=== PATIENT | male | born 1960 | race Hispanic/Latino ===

== ENCOUNTER 2017-11-29 10:24 | Inpatient (IN) | payer OTHER ==
[~2017-11-29] VITALS: Ht 177.8 cm; Wt 100.0 kg
[~2017-11-29 10:24] MED LIST: ALPR-411 PO; AMLO25PO MC; GABA-529 PO; GLIM2TAB3 PO; HYDR12.530 PO; IBUP-2071 PO; INSLAN SQ; LABETALOL PO; LOSA100T29 PO; MAGN250T10 PO; POLY30DR OP; [UNRECOGNIZED DRUG - CODE] MC
[2017-11-29 11:21] LABS: BASOPHILS % (AUTO) 1.1 % (0.0-5.0); EOSINOPHILS % (AUTO) 3.2 % (0.0-8.0); HEMATOCRIT 35.3 % (42-54); LYMPHOCYTES % (AUTO) 30.9 % (21.0-51.0); MEAN CORPUSCULAR HEMOGLOBIN 29.3 pg (27.0-33.0); MEAN CORPUSCULAR HGB CONC 34.1 g/dL (32.0-36.0); MEAN CORPUSCULAR VOLUME 86.1 fL (79-99); MONOCYTES % (AUTO) 9.8 % (3.0-13.0); PLATELET COUNT (AUTO) 80 K/uL (130-400); RED CELL DISTRIBUTION WIDTH 15.1 % (11.0-15.5); WHITE BLOOD COUNT (AUTO) 4.9 K/uL (4.8-10.8)
[2017-11-29 11:28] LABS: APPEARANCE,URINE Clear (CLEAR); BILIRUBIN,URINE Negative (NEGATIVE); COLOR,URINE Yellow (YELLOW); GLUCOSE, URINE (UA) >=1000 mg/dL (NEGATIVE); KETONES,URINE Negative (NEGATIVE); LEUKOCYTE ESTERASE ,URINE Negative (NEGATIVE); NITRATE,URINE Negative (NEGATIVE); OCCULT BLOOD,URINE Negative (NEGATIVE); PH,URINE 6.5 (5.0-8.0); PROTEIN,URINE Negative (NEGATIVE)
[2017-11-29 11:35] LABS: BILIRUBIN,DIRECT 0.2 mg/dL (0.0-0.3); BILIRUBIN,TOTAL 0.4 mg/dL (0.2-1.0); CREATININE 0.9 mg/dL (0.5-1.5); TOTAL PROTEIN, SERUM 8.3 g/dL (6.0-8.3)
[2017-11-29 11:49] LABS: BACTERIA,URINE Rare /HPF (None Seen); RBC,URINE 0-1 /HPF (0-1); SQUAMOUS EPITHELIAL CELL,UR Rare /LPF (0-2); WBC,URINE 0-1 /HPF (0-1)
[2017-11-29 12:24] LABS: INR 1.18 (0.85-1.15); PARTIAL THROMBOPLASTIN TIME 28.2 SEC (26.3-35.5); PROTHROMBIN TIME 12.3 SEC (9.6-11.6)
[2017-11-29] MEDS ORDERED: INSULIN HUMULIN R 100 UNIT/ML 3ML ONE (14:03)
[2017-11-29] MEDS: ALPRAZOLAM 1 MG TAB PO SCH (21:00)
[2017-11-29] MEDS: ARTIFICAL TEARS SOL 15 ML OP SCH (21:00)
[2017-11-29] MEDS: GABAPENTIN 100 MG CAPSULE PO SCH (21:00)
[2017-11-29] MEDS: LABETALOL HCL 200 MG TABLET PO SCH (21:00)
[2017-11-29] MEDS: INSULIN GLARGINE 100 UNITS/ML 10 ML VIAL SQ SCH (21:00)
[2017-11-29 21:02] VITALS: BP 146/78
[2017-11-29 23:59] VITALS: BP 160/96
[2017-11-30] MEDS ORDERED: ATOR10TA69 PO (02:33)
[2017-11-30] MEDS ORDERED: TRAM50TA4 PO (02:33)
[2017-11-30] MEDS ORDERED: AMLO10TA2 PO (02:33)
[2017-11-30] MEDS ORDERED: CYCL5TAB PO (02:33)
[2017-11-30] MEDS ORDERED: FURO40TA5 PO (02:33)
[2017-11-30] MEDS ORDERED: GABA-531 PO (02:33)
[2017-11-30] MEDS ORDERED: SPIR100T3 PO (02:33)
[2017-11-30] MEDS ORDERED: ESCI10TA54 PO (02:33)
[2017-11-30] MEDS ORDERED: LEVO88TA7 PO (02:33)
[2017-11-30] MEDS ORDERED: PANT40TA25 PO (02:33)
[2017-11-30] MEDS ORDERED: MELO-108 PO (02:33)
[2017-11-30] MEDS ORDERED: GLIM2TAB3 PO (02:33)
[2017-11-30 04:00] VITALS: BP 143/80
[2017-11-30] MEDS ORDERED: GLUCAGON 1MG KIT 1 MG ML IM PRN (04:00)
[2017-11-30] MEDS ORDERED: DEXTROSE 50%-WATER 50 ML DISP.SYRIN IV PRN (04:00)
[2017-11-30 06:32] LABS: HEMATOCRIT 35.4 % (42-54); MEAN CORPUSCULAR HGB CONC 34.7 g/dL (32.0-36.0); MEAN CORPUSCULAR VOLUME 86.3 fL (79-99); NUCLEATED RED BLOOD CELLS 0.2 % (0.0-0.19); PLATELET COUNT (AUTO) 82 K/uL (130-400); WHITE BLOOD COUNT (AUTO) 5.6 K/uL (4.8-10.8)
[2017-11-30 06:36] LABS: INR 1.18 (0.85-1.15); PROTHROMBIN TIME 12.4 SEC (9.6-11.6)
[2017-11-30 06:50] LABS: CREATININE 0.8 mg/dL (0.5-1.5); POTASSIUM 4.2 mmol/L (3.5-5.1)
[2017-11-30 07:00] VITALS: BP 138/93
[2017-11-30] MEDS: INSULIN HUMULIN R 100 UNIT/ML 3ML SQ SCH ×4 (08:02→21:38)
[2017-11-30 08:36] LABS: EOSINOPHILS % (MANUAL) 1 % (1-6); LYMPHOCYTES % (MANUAL) 46 % (22-44); MONOCYTES % (MANUAL) 1 % (2-9); SEGMENTED NEUTROPHILS % 52 % (40-70)
[2017-11-30 08:37] LABS: MAN.DIFF COMMENT-IMPRESSION MANUAL DIFFERENTIAL
[2017-11-30 08:38] LABS: PLATELET MORPHOLOGY COMMENT DECREASED
[2017-11-30] MEDS: LOSARTAN 100 MG TABLET PO SCH ×2 (09:00→12:05)
[2017-11-30] MEDS: INSULIN GLARGINE 100 UNITS/ML 10 ML VIAL SQ SCH ×2 (09:00→21:37)
[2017-11-30] MEDS: AMLODIPINE BESYLATE 5 MG TAB PO SCH ×3 (09:00→12:04)
[2017-11-30] MEDS: ALPRAZOLAM 1 MG TAB PO SCH ×4 (09:00→20:24)
[2017-11-30] MEDS: LABETALOL HCL 200 MG TABLET PO SCH ×3 (09:00→20:24)
[2017-11-30] MEDS: GABAPENTIN 100 MG CAPSULE PO SCH ×3 (09:00→14:00)
[2017-11-30] MEDS: POTASSIUM GLUCONATE 595 MG PO SCH (09:00)
[2017-11-30] MEDS: GLIMEPIRIDE 2 MG TABLET PO SCH ×3 (09:00→18:20)
[2017-11-30] MEDS: ARTIFICAL TEARS SOL 15 ML OP SCH ×2 (09:00→21:00)
[2017-11-30] MEDS: HYDROCHLOROTHIAZIDE 25 MG TABLET PO SCH ×2 (09:00→12:05)
[2017-11-30] MEDS ORDERED: MORPHINE SULFATE 2 MG/ML 1ML SYG IM PRN (09:15)
[2017-11-30] MEDS: SPIRONOLACTONE 25 MG TAB PO SCH ×2 (09:35→20:24)
[2017-11-30] MEDS ORDERED: IOPAMIDOL-370 75 ML VIAL IV ONE (10:40)
[2017-11-30 11:00] VITALS: BP 154/81
[2017-11-30] MEDS: GABAPENTIN 300 MG CAPSULE PO SCH ×2 (14:00→20:24)
[2017-11-30] MEDS: CYCLOBENZAPRINE HCL 10 MG TABLET PO SCH ×2 (15:37→20:24)
[2017-11-30 16:00] VITALS: BP 134/65
[2017-11-30] MEDS: ATORVASTATIN CALCIUM 10 MG TABLET PO SCH (20:24)
[2017-11-30] MEDS ORDERED: MORPHINE SULFATE 2 MG/ML 1ML SYG IVP PRN (21:15)
[2017-11-30 22:26] VITALS: BP 127/75
[2017-12-01 00:50] VITALS: BP 123/69
[2017-12-01 04:47] VITALS: BP 122/67
[2017-12-01 05:33] LABS: HEMATOCRIT 36.3 % (42-54); MEAN CORPUSCULAR HEMOGLOBIN 29.3 pg (27.0-33.0); MEAN CORPUSCULAR HGB CONC 34.2 g/dL (32.0-36.0); MEAN CORPUSCULAR VOLUME 85.9 fL (79-99); PLATELET COUNT (AUTO) 93 K/uL (130-400); RED BLOOD CELL COUNT(AUTO) 4.23 MIL/uL (4.50-6.20); RED CELL DISTRIBUTION WIDTH 14.7 % (11.0-15.5); WHITE BLOOD COUNT (AUTO) 6.7 K/uL (4.8-10.8)
[2017-12-01 05:37] LABS: POTASSIUM 3.7 mmol/L (3.5-5.1)
[2017-12-01] MEDS: INSULIN HUMULIN R 100 UNIT/ML 3ML SQ SCH ×4 (05:54→21:26)
[2017-12-01] MEDS: LEVOTHYROXINE 88 MCG TABLET PO SCH (06:55)
[2017-12-01] MEDS: PANTOPRAZOLE SODIUM 40 MG TABLET.DR PO SCH (06:55)
[2017-12-01 07:00] VITALS: BP 136/74
[2017-12-01 07:46] LABS: EOSINOPHILS % (MANUAL) 4 % (1-6); LYMPHOCYTES % (MANUAL) 22 % (22-44); MAN.DIFF COMMENT-IMPRESSION MANUAL DIFFERENTIAL; MONOCYTES % (MANUAL) 13 % (2-9); SEGMENTED NEUTROPHILS % 61 % (40-70)
[2017-12-01 07:47] LABS: PLATELET MORPHOLOGY COMMENT DECREASED
[2017-12-01] MEDS: ARTIFICAL TEARS SOL 15 ML OP SCH ×2 (09:00→21:00)
[2017-12-01] MEDS: POTASSIUM GLUCONATE 595 MG PO SCH (09:00)
[2017-12-01] MEDS: GABAPENTIN 300 MG CAPSULE PO SCH ×3 (10:08→21:15)
[2017-12-01] MEDS: LABETALOL HCL 200 MG TABLET PO SCH ×2 (10:08→21:16)
[2017-12-01] MEDS: SPIRONOLACTONE 25 MG TAB PO SCH ×2 (10:08→21:15)
[2017-12-01] MEDS: ALPRAZOLAM 1 MG TAB PO SCH ×3 (10:09→21:00)
[2017-12-01] MEDS: CITALOPRAM 20 MG TABLET PO SCH (10:09)
[2017-12-01] MEDS: HYDROCHLOROTHIAZIDE 25 MG TABLET PO SCH (10:09)
[2017-12-01] MEDS: CYCLOBENZAPRINE HCL 10 MG TABLET PO SCH ×3 (10:10→21:15)
[2017-12-01] MEDS: FUROSEMIDE 40 MG TABLET PO SCH (10:10)
[2017-12-01] MEDS: LOSARTAN 100 MG TABLET PO SCH (10:10)
[2017-12-01] MEDS: AMLODIPINE BESYLATE 5 MG TAB PO SCH (10:11)
[2017-12-01] MEDS: GLIMEPIRIDE 2 MG TABLET PO SCH ×2 (10:14→18:43)
[2017-12-01] MEDS: TRAMADOL HCL 50 MG TABLET PO PRN (10:15)
[2017-12-01] MEDS: INSULIN GLARGINE 100 UNITS/ML 10 ML VIAL SQ SCH ×2 (10:21→21:25)
[2017-12-01 12:00] VITALS: BP 125/72
[2017-12-01 16:00] VITALS: BP 123/67
[2017-12-01 21:01] VITALS: BP 133/68
[2017-12-01] MEDS: ATORVASTATIN CALCIUM 10 MG TABLET PO SCH (21:14)
[2017-12-02 04:30] VITALS: BP 124/68
[2017-12-02 06:08] LABS: HEMATOCRIT 35.3 % (42-54); MEAN CORPUSCULAR HEMOGLOBIN 29.6 pg (27.0-33.0); MEAN CORPUSCULAR HGB CONC 34.2 g/dL (32.0-36.0); MEAN CORPUSCULAR VOLUME 86.3 fL (79-99); PLATELET COUNT (AUTO) 77 K/uL (130-400); RED BLOOD CELL COUNT(AUTO) 4.08 MIL/uL (4.50-6.20); RED CELL DISTRIBUTION WIDTH 15.2 % (11.0-15.5); WHITE BLOOD COUNT (AUTO) 5.5 K/uL (4.8-10.8)
[2017-12-02 06:19] LABS: POTASSIUM 3.4 mmol/L (3.5-5.1)
[2017-12-02] MEDS: PANTOPRAZOLE SODIUM 40 MG TABLET.DR PO SCH (06:48)
[2017-12-02] MEDS: LEVOTHYROXINE 88 MCG TABLET PO SCH (06:48)
[2017-12-02] MEDS: INSULIN HUMULIN R 100 UNIT/ML 3ML SQ SCH ×4 (06:57→21:58)
[2017-12-02 07:00] VITALS: BP 138/78
[2017-12-02 07:12] LABS: EOSINOPHILS % (MANUAL) 2 % (1-6); LYMPHOCYTES % (MANUAL) 38 % (22-44); MAN.DIFF COMMENT-IMPRESSION MANUAL DIFFERENTIAL; MONOCYTES % (MANUAL) 11 % (2-9); PLATELET MORPHOLOGY COMMENT DECREASED; REACTIVE LYMPHOCYTES 3 % (0-0); SEGMENTED NEUTROPHILS % 46 % (40-70)
[2017-12-02] MEDS: ARTIFICAL TEARS SOL 15 ML OP SCH ×2 (09:00→21:00)
[2017-12-02] MEDS: POTASSIUM GLUCONATE 595 MG PO SCH (09:00)
[2017-12-02] MEDS: GLIMEPIRIDE 2 MG TABLET PO SCH ×2 (09:37→17:05)
[2017-12-02] MEDS: LABETALOL HCL 200 MG TABLET PO SCH ×2 (09:37→21:53)
[2017-12-02] MEDS: AMLODIPINE BESYLATE 5 MG TAB PO SCH (09:38)
[2017-12-02] MEDS: SPIRONOLACTONE 25 MG TAB PO SCH ×2 (09:38→21:53)
[2017-12-02] MEDS: GABAPENTIN 300 MG CAPSULE PO SCH ×3 (09:39→21:52)
[2017-12-02] MEDS: HYDROCHLOROTHIAZIDE 25 MG TABLET PO SCH (09:39)
[2017-12-02] MEDS: CYCLOBENZAPRINE HCL 10 MG TABLET PO SCH ×3 (09:39→21:54)
[2017-12-02] MEDS: CITALOPRAM 20 MG TABLET PO SCH (09:40)
[2017-12-02] MEDS: ALPRAZOLAM 1 MG TAB PO SCH ×3 (09:40→21:53)
[2017-12-02] MEDS: LOSARTAN 100 MG TABLET PO SCH (09:40)
[2017-12-02] MEDS: FUROSEMIDE 40 MG TABLET PO SCH (09:40)
[2017-12-02] MEDS: INSULIN GLARGINE 100 UNITS/ML 10 ML VIAL SQ SCH ×2 (09:49→21:59)
[2017-12-02 11:00] VITALS: BP 126/67
[2017-12-02 16:00] VITALS: BP 103/65
[2017-12-02 20:13] VITALS: BP 115/66
[2017-12-02] MEDS: ATORVASTATIN CALCIUM 10 MG TABLET PO SCH (21:53)
[2017-12-02] MEDS: TRAMADOL HCL 50 MG TABLET PO PRN (22:05)
[2017-12-03 00:33] VITALS: BP 135/68
[2017-12-03 06:24] VITALS: BP 130/67
[2017-12-03] MEDS: LEVOTHYROXINE 88 MCG TABLET PO SCH (06:32)
[2017-12-03] MEDS: INSULIN HUMULIN R 100 UNIT/ML 3ML SQ SCH ×4 (06:32→22:13)
[2017-12-03] MEDS: PANTOPRAZOLE SODIUM 40 MG TABLET.DR PO SCH (06:32)
[2017-12-03 06:59] LABS: HEMATOCRIT 36.9 % (42-54); MEAN CORPUSCULAR HEMOGLOBIN 29.2 pg (27.0-33.0); MEAN CORPUSCULAR HGB CONC 33.8 g/dL (32.0-36.0); MEAN CORPUSCULAR VOLUME 86.3 fL (79-99); PLATELET COUNT (AUTO) 87 K/uL (130-400); RED BLOOD CELL COUNT(AUTO) 4.27 MIL/uL (4.50-6.20); RED CELL DISTRIBUTION WIDTH 15.2 % (11.0-15.5); WHITE BLOOD COUNT (AUTO) 6.2 K/uL (4.8-10.8)
[2017-12-03 07:14] LABS: POTASSIUM 3.7 mmol/L (3.5-5.1)
[2017-12-03 08:00] VITALS: BP 125/75
[2017-12-03] MEDS: GLIMEPIRIDE 2 MG TABLET PO SCH ×2 (08:00→18:05)
[2017-12-03] MEDS ORDERED: GADOBENATE DIMEGLUMINE 20 ML IV ONE (08:39)
[2017-12-03 08:54] LABS: BASOPHILS % (MANUAL) 2 % (0-2); EOSINOPHILS % (MANUAL) 2 % (1-6); LYMPHOCYTES % (MANUAL) 34 % (22-44); MONOCYTES % (MANUAL) 4 % (2-9); REACTIVE LYMPHOCYTES 1 % (0-0); SEGMENTED NEUTROPHILS % 57 % (40-70)
[2017-12-03 08:55] LABS: MAN.DIFF COMMENT-IMPRESSION MANUAL DIFFERENTIAL; PLATELET MORPHOLOGY COMMENT DECREASED
[2017-12-03] MEDS: POTASSIUM GLUCONATE 595 MG PO SCH (09:00)
[2017-12-03] MEDS: INSULIN GLARGINE 100 UNITS/ML 10 ML VIAL SQ SCH ×2 (09:00→22:14)
[2017-12-03] MEDS: ARTIFICAL TEARS SOL 15 ML OP SCH ×2 (09:00→21:00)
[2017-12-03] MEDS: SPIRONOLACTONE 25 MG TAB PO SCH ×2 (10:16→22:07)
[2017-12-03] MEDS: GABAPENTIN 300 MG CAPSULE PO SCH ×3 (10:17→22:09)
[2017-12-03] MEDS: HYDROCHLOROTHIAZIDE 25 MG TABLET PO SCH (10:17)
[2017-12-03] MEDS: AMLODIPINE BESYLATE 5 MG TAB PO SCH (10:17)
[2017-12-03] MEDS: FUROSEMIDE 40 MG TABLET PO SCH (10:17)
[2017-12-03] MEDS: ALPRAZOLAM 1 MG TAB PO SCH ×3 (10:17→22:08)
[2017-12-03] MEDS: LOSARTAN 100 MG TABLET PO SCH (10:17)
[2017-12-03] MEDS: CITALOPRAM 20 MG TABLET PO SCH (10:17)
[2017-12-03] MEDS: TRAMADOL HCL 50 MG TABLET PO PRN (10:18)
[2017-12-03] MEDS: CYCLOBENZAPRINE HCL 10 MG TABLET PO SCH ×3 (10:18→22:18)
[2017-12-03] MEDS: LABETALOL HCL 200 MG TABLET PO SCH ×2 (10:19→22:06)
[2017-12-03 11:00] VITALS: BP 127/63
[2017-12-03 16:00] VITALS: BP 127/69
[2017-12-03 20:59] VITALS: BP 118/71
[2017-12-03] MEDS: ATORVASTATIN CALCIUM 10 MG TABLET PO SCH (22:06)
[2017-12-04 01:03] VITALS: BP 114/59
[2017-12-04 04:45] VITALS: BP 116/59
[2017-12-04] MEDS: LEVOTHYROXINE 88 MCG TABLET PO SCH (05:26)
[2017-12-04 05:34] LABS: MEAN CORPUSCULAR HEMOGLOBIN 29.9 pg (27.0-33.0); MEAN CORPUSCULAR HGB CONC 34.4 g/dL (32.0-36.0); MEAN CORPUSCULAR VOLUME 86.8 fL (79-99); NUCLEATED RED BLOOD CELLS 0.1 % (0.0-0.19); PLATELET COUNT (AUTO) 86 K/uL (130-400); RED BLOOD CELL COUNT(AUTO) 4.03 MIL/uL (4.50-6.20); RED CELL DISTRIBUTION WIDTH 14.8 % (11.0-15.5); WHITE BLOOD COUNT (AUTO) 5.5 K/uL (4.8-10.8)
[2017-12-04 05:50] LABS: CREATININE 1.1 mg/dL (0.5-1.5)
[2017-12-04] MEDS: PANTOPRAZOLE SODIUM 40 MG TABLET.DR PO SCH (06:43)
[2017-12-04] MEDS: INSULIN HUMULIN R 100 UNIT/ML 3ML SQ SCH ×2 (06:46→12:47)
[2017-12-04 07:38] LABS: BASOPHILS % (MANUAL) 1 % (0-2); EOSINOPHILS % (MANUAL) 2 % (1-6); LYMPHOCYTES % (MANUAL) 29 % (22-44); MONOCYTES % (MANUAL) 7 % (2-9); SEGMENTED NEUTROPHILS % 61 % (40-70)
[2017-12-04 07:39] LABS: MAN.DIFF COMMENT-IMPRESSION MANUAL DIFFERENTIAL
[2017-12-04 07:40] LABS: PLATELET MORPHOLOGY COMMENT DECREASED
[2017-12-04 08:07] VITALS: BP 123/70
[2017-12-04] MEDS: SPIRONOLACTONE 25 MG TAB PO SCH (08:59)
[2017-12-04] MEDS: LABETALOL HCL 200 MG TABLET PO SCH (08:59)
[2017-12-04] MEDS: CYCLOBENZAPRINE HCL 10 MG TABLET PO SCH (09:00)
[2017-12-04] MEDS: CITALOPRAM 20 MG TABLET PO SCH (09:00)
[2017-12-04] MEDS: ALPRAZOLAM 1 MG TAB PO SCH (09:00)
[2017-12-04] MEDS: GABAPENTIN 300 MG CAPSULE PO SCH (09:00)
[2017-12-04] MEDS: LOSARTAN 100 MG TABLET PO SCH (09:00)
[2017-12-04] MEDS: POTASSIUM GLUCONATE 595 MG PO SCH (09:00)
[2017-12-04] MEDS: ARTIFICAL TEARS SOL 15 ML OP SCH (09:00)
[2017-12-04] MEDS: AMLODIPINE BESYLATE 5 MG TAB PO SCH (09:00)
[2017-12-04] MEDS: HYDROCHLOROTHIAZIDE 25 MG TABLET PO SCH (09:01)
[2017-12-04] MEDS: GLIMEPIRIDE 2 MG TABLET PO SCH (09:01)
[2017-12-04] MEDS: FUROSEMIDE 40 MG TABLET PO SCH (09:01)
[2017-12-04] MEDS: TRAMADOL HCL 50 MG TABLET PO PRN (09:02)
[2017-12-04] MEDS: INSULIN GLARGINE 100 UNITS/ML 10 ML VIAL SQ SCH (09:25)
[2017-12-04] MEDS ORDERED: ARTIFICAL TEARS SOL 15 ML OP SCH (09:53)
[2017-12-04] MEDS ORDERED: HYDR25TA PO (11:08)
[2017-12-04 13:26] VITALS: BP 119/67
== END 2017-12-04 15:10 | disposition home or self-care (01) | DRG 699 ==
LOC: EDH 10:24 → EDHIP 13:25 → 3DH 21:16
PROVIDERS: ADMIT Family Medicine; ATTEND Family Medicine
PROC: 0TB13ZX Excision of Left Kidney, Percutaneous Approach, Diagnostic (ICD-10-PCS; principal; 2017-11-30)
DX: N28.89 Other specified disorders of kidney and ureter (principal); K76.6 Portal hypertension; D69.6 Thrombocytopenia, unspecified; E11.40 Type 2 diabetes mellitus with diabetic neuropathy, unspecified; E66.01 Morbid (severe) obesity due to excess calories; I10 Essential (primary) hypertension; E03.9 Hypothyroidism, unspecified; F32.9 Major depressive disorder, single episode, unspecified; F41.9 Anxiety disorder, unspecified; K74.60 Unspecified cirrhosis of liver; E78.5 Hyperlipidemia, unspecified; G47.33 Obstructive sleep apnea (adult) (pediatric); K21.9 Gastro-esophageal reflux disease without esophagitis; Z68.31 Body mass index [BMI] 31.0-31.9, adult; Z88.8 Allergy status to other drugs, medicaments and biological substances; Z91.011 Allergy to milk products; Z79.4 Long term (current) use of insulin; Z80.1 Family history of malignant neoplasm of trachea, bronchus and lung
CPT/HCPCS: 36415; 50200; 71045; 71250; 74178; 74183; 77012; 80048; 80076; 81001; 82105; 82948; 83690; 85025; 85610; 85730; 88305; 88341; 88342; 93005; A9577; J1815; Q9967

== ENCOUNTER → 2017-12-20 | Outpatient (CLI) | payer OTHER ==
[~2017-12-20] MED LIST changes: +AMLO10TA2 PO; -AMLO25PO MC; +ATOR10TA69 PO; +CYCL5TAB PO; +ESCI10TA54 PO; +FURO40TA5 PO; -GABA-529 PO; +GABA-531 PO; -HYDR12.530 PO; +HYDR25TA PO; -IBUP-2071 PO; +LEVO88TA7 PO; -MAGN250T10 PO; +PANT40TA25 PO; +SPIR100T5 PO; +TRAM50TA4 PO; -[UNRECOGNIZED DRUG - CODE] MC
== END | disposition home or self-care (01) ==
LOC: SHCH 09:28
PROVIDERS: ATTEND Internal Medicine Cardiovascular Disease
DX: I42.9 Cardiomyopathy, unspecified (principal); I10 Essential (primary) hypertension; E11.9 Type 2 diabetes mellitus without complications; E03.9 Hypothyroidism, unspecified; E78.00 Pure hypercholesterolemia, unspecified; K21.9 Gastro-esophageal reflux disease without esophagitis
CPT/HCPCS: 93306

== ENCOUNTER 2018-03-11 14:56 | Inpatient (IN) | payer OTHER ==
[2018-03-11 15:45] LABS: BASOPHILS % (AUTO) 0.7 % (0.0-5.0); EOSINOPHILS % (AUTO) 1.8 % (0.0-8.0); HEMATOCRIT 28.5 % (42-54); MEAN CORPUSCULAR HEMOGLOBIN 28.9 pg (27.0-33.0); MEAN CORPUSCULAR HGB CONC 33.6 g/dL (32.0-36.0); MONOCYTES % (AUTO) 7.4 % (3.0-13.0); NEUTROPHILS % (AUTO) 70.1 % (40.0-77.0); PLATELET COUNT (AUTO) 80 K/uL (130-400); RED BLOOD CELL COUNT(AUTO) 3.31 MIL/uL (4.50-6.20); RED CELL DISTRIBUTION WIDTH 15.8 % (11.0-15.5); WHITE BLOOD COUNT (AUTO) 6.9 K/uL (4.8-10.8)
[2018-03-11 16:01] LABS: CREATININE 3.4 mg/dL (0.5-1.5)
[2018-03-11 16:02] LABS: INR 1.14 (0.85-1.15); PARTIAL THROMBOPLASTIN TIME 27.6 SEC (26.3-35.5); PROTHROMBIN TIME 11.9 SEC (9.6-11.6)
[2018-03-11 16:13] LABS: T4 (THYROXINE) 8.3 mcg/dL (4.7-13.3); THYROID STIMULATING HORMONE 3.46 uIU/mL (0.36-3.74)
[2018-03-11 16:16] LABS: ALBUMIN 3.9 g/dL (3.5-5.0); BILIRUBIN,TOTAL 0.7 mg/dL (0.2-1.0); CREATINE KINASE MB 2.4 ng/mL (0.5-3.6); TOTAL PROTEIN, SERUM 8.2 g/dL (6.0-8.3)
[2018-03-11] MEDS ORDERED: LACTULOSE 20 GM/30 ML UDCUP ONE (16:44)
[2018-03-11] MEDS ORDERED: ACETAMINOPHEN EXTRA STRENGTH 500 MG TABLET ONE (18:01)
[2018-03-11 18:59] LABS: APPEARANCE,URINE Clear (CLEAR); BILIRUBIN,URINE Negative (NEGATIVE); COLOR,URINE Yellow (YELLOW); GLUCOSE, URINE (UA) Negative (NEGATIVE); KETONES,URINE Negative (NEGATIVE); LEUKOCYTE ESTERASE ,URINE Negative (NEGATIVE); NITRATE,URINE Negative (NEGATIVE); OCCULT BLOOD,URINE Nonhemolyzed Trace (NEGATIVE); PH,URINE >=9.0 (5.0-8.0); PROTEIN,URINE Trace (NEGATIVE)
[2018-03-11 19:07] LABS: BACTERIA,URINE None Seen /HPF (None Seen); RBC,URINE 0-1 /HPF (0-1); SQUAMOUS EPITHELIAL CELL,UR 0-2 /HPF (0-2); WBC,URINE None Seen /HPF (0-1)
[2018-03-11] MEDS ORDERED: ACETAMINOPHEN 325 MG TAB PO PRN ×2 (20:00)
[2018-03-11] MEDS ORDERED: LACTULOSE 20 GM/30 ML UDCUP PO PRN (20:00)
[2018-03-11] MEDS ORDERED: ONDANSETRON HCL 4 MG/2 ML VIAL IVP PRN (20:00)
[2018-03-12] MEDS ORDERED: FAMOTIDINE 20MG TAB 20 MG TAB PO SCH (09:00)
== END 2018-03-11 20:45 | disposition home or self-care (01) | DRG 443 ==
LOC: EDH 14:56 → EDHIP 19:00
PROVIDERS: ADMIT Internal Medicine Nephrology; ATTEND Internal Medicine Nephrology
DX: K72.90 Hepatic failure, unspecified without coma (principal); E11.22 Type 2 diabetes mellitus with diabetic chronic kidney disease; F32.9 Major depressive disorder, single episode, unspecified; F41.9 Anxiety disorder, unspecified; K70.30 Alcoholic cirrhosis of liver without ascites; G47.30 Sleep apnea, unspecified; I12.9 Hypertensive chronic kidney disease with stage 1 through stage 4 chronic kidney disease, or unspecified chronic kidney disease; K21.9 Gastro-esophageal reflux disease without esophagitis; N18.9 Chronic kidney disease, unspecified; Z87.891 Personal history of nicotine dependence; Z90.5 Acquired absence of kidney; Z88.8 Allergy status to other drugs, medicaments and biological substances; Z88.6 Allergy status to analgesic agent; Z88.1 Allergy status to other antibiotic agents; Z91.011 Allergy to milk products; Z90.49 Acquired absence of other specified parts of digestive tract; Z85.05 Personal history of malignant neoplasm of liver
CPT/HCPCS: 36415; 70450; 80053; 81001; 82140; 82550; 82553; 84436; 84443; 84484; 85025; 85610; 85730; 93005

== ENCOUNTER 2018-06-20 12:47 | Inpatient (IN) | payer OTHER ==
[~2018-06-20] VITALS: Ht 177.8 cm; Wt 98.4 kg
[~2018-06-20 12:47] MED LIST changes: -AMLO10TA2 PO; +AMLO10TA6 PO; +LOSA100T20 PO; -LOSA100T29 PO
[2018-06-20 13:24] LABS: APPEARANCE,URINE Clear (CLEAR); BILIRUBIN,URINE Negative (NEGATIVE); COLOR,URINE Yellow (YELLOW); GLUCOSE, URINE (UA) >=1000 mg/dL (NEGATIVE); KETONES,URINE Negative (NEGATIVE); LEUKOCYTE ESTERASE ,URINE Negative (NEGATIVE); NITRATE,URINE Negative (NEGATIVE); OCCULT BLOOD,URINE Negative (NEGATIVE); PROTEIN,URINE Negative (NEGATIVE); UROBILINOGEN,URINE 0.2 mg/dL (0.2-1.0)
[2018-06-20 13:55] LABS: BASOPHILS % (AUTO) 1.1 % (0.0-5.0); EOSINOPHILS % (AUTO) 2.1 % (0.0-8.0); HEMATOCRIT 31.4 % (42-54); LYMPHOCYTES % (AUTO) 23.3 % (21.0-51.0); MEAN CORPUSCULAR HEMOGLOBIN 27.8 pg (27.0-33.0); MEAN CORPUSCULAR HGB CONC 33.2 g/dL (32.0-36.0); MEAN CORPUSCULAR VOLUME 83.7 fL (79-99); MONOCYTES % (AUTO) 9.4 % (3.0-13.0); NEUTROPHILS % (AUTO) 64.1 % (40.0-77.0); PLATELET COUNT (AUTO) 67 K/uL (130-400); RED BLOOD CELL COUNT(AUTO) 3.75 MIL/uL (4.50-6.20); RED CELL DISTRIBUTION WIDTH 14.2 % (11.0-15.5); WHITE BLOOD COUNT (AUTO) 6.8 K/uL (4.8-10.8)
[2018-06-20] MEDS ORDERED: SODIUM CHLORIDE 0.9% 1000ML 2,000 ML IV ONE (13:59)
[2018-06-20] MEDS ORDERED: INSULIN HUMULIN R 100 UNIT/ML 3ML ONE ×2 (14:06→16:34)
[2018-06-20 14:07] LABS: ACETONE,BLOOD NEGATIVE (NEGATIVE)
[2018-06-20 14:12] LABS: CARBON DIOXIDE 23 mmol/L (21-32); CHLORIDE 92 mmol/L (101-111); CREATININE 1.9 mg/dL (0.5-1.5); GLOMERULAR FILTR. RATE CALC 39 mL/min (>60); POTASSIUM 4.1 mmol/L (3.5-5.1); SODIUM SERUM 125 mmol/L (136-145); UREA NITROGEN, BLOOD 26 mg/dL (7-18)
[2018-06-20 14:13] LABS: GLUCOSE,RANDOM 484 mg/dL (70-105)
[2018-06-20 14:15] LABS: BACTERIA,URINE Rare /HPF (None Seen); MUCUS,URINE Rare LPF (None Seen); RBC,URINE None Seen /HPF (0-1); SQUAMOUS EPITHELIAL CELL,UR Rare /HPF (0-2); WBC,URINE 0-1 /HPF (0-1)
[2018-06-20 14:16] LABS: ALANINE AMINOTRANSFERASE 59 U/L (12-78); ALBUMIN 3.3 g/dL (3.5-5.0); ASPARTATE AMINOTRANSFERASE 39 U/L (10-37); BILIRUBIN,TOTAL 0.6 mg/dL (0.2-1.0); TOTAL PROTEIN, SERUM 8.9 g/dL (6.0-8.3)
[2018-06-20 14:18] LABS: AMMONIA 60 umol/L (11-32)
[2018-06-20] MEDS ORDERED: ONDANSETRON HCL 4 MG/2 ML VIAL IV PRN (17:15)
[2018-06-20] MEDS ORDERED: TRAMADOL HCL 50 MG TABLET PO PRN (17:30)
[2018-06-20] MEDS ORDERED: ZOSYN 3.375GM+NS 50ML 50 ML IV ONE (18:07)
[2018-06-20 18:39] LABS: HEMOGLOBIN A1C 12.6 % (4.0-6.0)
[2018-06-20 18:40] LABS: INR 1.15 (0.85-1.15); PARTIAL THROMBOPLASTIN TIME 30.2 SEC (26.3-35.5)
[2018-06-20] MEDS: ZOSYN 3.375GM+NS 50ML 50 ML IV SCH (19:50)
[2018-06-20 20:00] VITALS: BP 131/66
[2018-06-20] MEDS: GABAPENTIN 300 MG CAPSULE PO SCH (20:34)
[2018-06-20] MEDS: ALPRAZOLAM 1 MG TAB PO SCH (20:35)
[2018-06-20] MEDS: GLIMEPIRIDE 2 MG TABLET PO SCH (20:35)
[2018-06-20] MEDS: CYCLOBENZAPRINE HCL 10 MG TABLET PO SCH (20:35)
[2018-06-20] MEDS: LABETALOL HCL 200 MG TABLET PO SCH (20:35)
[2018-06-20] MEDS: SODIUM CHLORIDE 0.9% 1000ML 1,000 ML IV SCH (20:44)
[2018-06-20] MEDS: ARTIFICAL TEARS SOL 15 ML OP SCH (20:44)
[2018-06-20] MEDS ORDERED: LACTULOSE 20 GM/30 ML UDCUP PO SCH (21:00)
[2018-06-20] MEDS: INSULIN GLARGINE 100 UNITS/ML 10 ML VIAL SQ SCH (21:00)
[2018-06-20] MEDS: INSULIN LISPRO 100 UNIT/ML 3ML SQ SCH (21:03)
[2018-06-21] VITALS (7 sets, daily range): BP systolic 100–138; BP diastolic 42–74
[2018-06-21 05:26] LABS: MEAN CORPUSCULAR HEMOGLOBIN 28.5 pg (27.0-33.0); MEAN CORPUSCULAR HGB CONC 33.6 g/dL (32.0-36.0); MEAN CORPUSCULAR VOLUME 84.9 fL (79-99); PLATELET COUNT (AUTO) 73 K/uL (130-400); RED BLOOD CELL COUNT(AUTO) 3.54 MIL/uL (4.50-6.20); RED CELL DISTRIBUTION WIDTH 14.5 % (11.0-15.5)
[2018-06-21 05:40] LABS: ALBUMIN 2.9 g/dL (3.5-5.0); BILIRUBIN,TOTAL 0.6 mg/dL (0.2-1.0); CREATININE 1.6 mg/dL (0.5-1.5); POTASSIUM 4.3 mmol/L (3.5-5.1); TOTAL PROTEIN, SERUM 7.9 g/dL (6.0-8.3)
[2018-06-21 05:44] LABS: HEMOGLOBIN A1C 12.8 % (4.0-6.0)
[2018-06-21] MEDS: ZOSYN 3.375GM+NS 50ML 50 ML IV SCH ×3 (05:54→21:03)
[2018-06-21] MEDS: LEVOTHYROXINE 88 MCG TABLET PO SCH (07:30)
[2018-06-21] MEDS ORDERED: INSULIN LISPRO 100 UNIT/ML 3ML SQ SCH (07:30)
[2018-06-21] MEDS: INSULIN LISPRO 100 UNIT/ML 3ML SQ SCH ×7 (07:41→21:13)
[2018-06-21] MEDS ORDERED: LIDOCAINE HCL MPF 1% 5ML VIAL ONE (08:53)
[2018-06-21] MEDS ORDERED: LOSARTAN 100 MG TABLET PO SCH (09:00)
[2018-06-21] MEDS: AMLODIPINE BESYLATE 5 MG TAB PO SCH (10:32)
[2018-06-21] MEDS: SODIUM CHLORIDE 0.9% 1000ML 1,000 ML IV SCH ×3 (10:32→12:45)
[2018-06-21] MEDS: LACTULOSE 20 GM/30 ML UDCUP PO SCH ×2 (10:32→20:59)
[2018-06-21] MEDS: GABAPENTIN 300 MG CAPSULE PO SCH ×3 (10:33→21:01)
[2018-06-21] MEDS: LABETALOL HCL 200 MG TABLET PO SCH ×2 (10:33→21:01)
[2018-06-21] MEDS: ATORVASTATIN CALCIUM 10 MG TABLET PO SCH (10:33)
[2018-06-21] MEDS: ALPRAZOLAM 1 MG TAB PO SCH ×3 (10:33→21:01)
[2018-06-21] MEDS: PANTOPRAZOLE SODIUM 40 MG TABLET.DR PO SCH (10:33)
[2018-06-21] MEDS: CITALOPRAM 20 MG TABLET PO SCH (10:33)
[2018-06-21] MEDS: CYCLOBENZAPRINE HCL 10 MG TABLET PO SCH ×3 (10:34→21:00)
[2018-06-21] MEDS: GLIMEPIRIDE 2 MG TABLET PO SCH ×2 (10:34→21:00)
[2018-06-21] MEDS: ARTIFICAL TEARS SOL 15 ML OP SCH ×2 (14:32→21:00)
[2018-06-21] MEDS: RIFAXIMIN 550 MG TABLET PO SCH (21:00)
[2018-06-21] MEDS: INSULIN GLARGINE 100 UNITS/ML 10 ML VIAL SQ SCH (21:12)
[2018-06-22] MEDS: SODIUM CHLORIDE 0.9% 1000ML 1,000 ML IV SCH (01:44)
[2018-06-22 03:46] VITALS: BP 105/41
[2018-06-22 04:59] LABS: HEMATOCRIT 32.8 % (42-54); MEAN CORPUSCULAR HEMOGLOBIN 27.7 pg (27.0-33.0); MEAN CORPUSCULAR HGB CONC 32.9 g/dL (32.0-36.0); MEAN CORPUSCULAR VOLUME 84.2 fL (79-99); PLATELET COUNT (AUTO) 75 K/uL (130-400); RED CELL DISTRIBUTION WIDTH 14.8 % (11.0-15.5); WHITE BLOOD COUNT (AUTO) 5.7 K/uL (4.8-10.8)
[2018-06-22] MEDS: ZOSYN 3.375GM+NS 50ML 50 ML IV SCH (05:05)
[2018-06-22 05:10] LABS: CREATININE 1.7 mg/dL (0.5-1.5); POTASSIUM 4.2 mmol/L (3.5-5.1)
[2018-06-22] MEDS: LEVOTHYROXINE 88 MCG TABLET PO SCH (06:18)
[2018-06-22] MEDS: INSULIN LISPRO 100 UNIT/ML 3ML SQ SCH ×4 (07:09→12:10)
[2018-06-22 08:00] VITALS: BP 118/67
[2018-06-22] MEDS: ARTIFICAL TEARS SOL 15 ML OP SCH (09:00)
[2018-06-22] MEDS: PANTOPRAZOLE SODIUM 40 MG TABLET.DR PO SCH (09:13)
[2018-06-22] MEDS: LABETALOL HCL 200 MG TABLET PO SCH (09:14)
[2018-06-22] MEDS: GLIMEPIRIDE 2 MG TABLET PO SCH (09:14)
[2018-06-22] MEDS: AMLODIPINE BESYLATE 5 MG TAB PO SCH (09:14)
[2018-06-22] MEDS: ALPRAZOLAM 1 MG TAB PO SCH (09:14)
[2018-06-22] MEDS: RIFAXIMIN 550 MG TABLET PO SCH (09:14)
[2018-06-22] MEDS: GABAPENTIN 300 MG CAPSULE PO SCH (09:14)
[2018-06-22] MEDS: LACTULOSE 20 GM/30 ML UDCUP PO SCH (09:15)
[2018-06-22] MEDS: ATORVASTATIN CALCIUM 10 MG TABLET PO SCH (09:15)
[2018-06-22] MEDS: CITALOPRAM 20 MG TABLET PO SCH (09:15)
[2018-06-22] MEDS: CYCLOBENZAPRINE HCL 10 MG TABLET PO SCH (09:15)
[2018-06-22 12:00] VITALS: BP 127/68
== END 2018-06-22 14:55 | disposition home or self-care (01) | DRG 683 ==
LOC: EDH 12:47 → EDHIP 16:30 → 3AH 18:45
PROVIDERS: ADMIT Internal Medicine; ATTEND Internal Medicine
DX: N17.9 Acute kidney failure, unspecified (principal); E87.1 Hypo-osmolality and hyponatremia; E44.0 Moderate protein-calorie malnutrition; E11.65 Type 2 diabetes mellitus with hyperglycemia; E11.22 Type 2 diabetes mellitus with diabetic chronic kidney disease; K70.31 Alcoholic cirrhosis of liver with ascites; D89.9 Disorder involving the immune mechanism, unspecified; E66.9 Obesity, unspecified; I12.9 Hypertensive chronic kidney disease with stage 1 through stage 4 chronic kidney disease, or unspecified chronic kidney disease; K21.9 Gastro-esophageal reflux disease without esophagitis; N18.9 Chronic kidney disease, unspecified; Z79.4 Long term (current) use of insulin; Z82.0 Family history of epilepsy and other diseases of the nervous system; Z82.3 Family history of stroke; Z82.49 Family history of ischemic heart disease and other diseases of the circulatory system; Z83.3 Family history of diabetes mellitus; Z90.5 Acquired absence of kidney; Z68.31 Body mass index [BMI] 31.0-31.9, adult; Z79.899 Other long term (current) drug therapy; Z88.8 Allergy status to other drugs, medicaments and biological substances; Z88.6 Allergy status to analgesic agent; Z91.011 Allergy to milk products
CPT/HCPCS: 36415; 76705; 80048; 80053; 80339; 81001; 82009; 82140; 82150; 82948; 83036; 83605; 83690; 85025; 85027; 85610; 85730; 87040; 87088; J1815; J2543; J3490; J7030

== ENCOUNTER 2018-07-30 12:30 | Emergency (ER) | payer OTHER ==
[~2018-07-30 12:30] MED LIST changes: -ALPR-411 PO; -HYDR25TA PO
[2018-07-30] MEDS ORDERED: ONDANSETRON HCL 4 MG/2 ML VIAL ONE (13:01)
[2018-07-30] MEDS ORDERED: SODIUM CHLORIDE 0.9% 500ML 500 ML IV ONE (13:01)
[2018-07-30 13:05] LABS: BASOPHILS % (AUTO) 0.5 % (0.0-5.0); EOSINOPHILS % (AUTO) 0.8 % (0.0-8.0); HEMATOCRIT 35.3 % (42-54); LYMPHOCYTES % (AUTO) 6.2 % (21.0-51.0); MEAN CORPUSCULAR HEMOGLOBIN 26.9 pg (27.0-33.0); MEAN CORPUSCULAR HGB CONC 32.5 g/dL (32.0-36.0); MONOCYTES % (AUTO) 4.8 % (3.0-13.0); NEUTROPHILS % (AUTO) 87.7 % (40.0-77.0); PLATELET COUNT (AUTO) 80 K/uL (130-400); RED BLOOD CELL COUNT(AUTO) 4.26 MIL/uL (4.50-6.20); RED CELL DISTRIBUTION WIDTH 14.8 % (11.0-15.5); WHITE BLOOD COUNT (AUTO) 9.4 K/uL (4.8-10.8)
[2018-07-30 13:20] LABS: ALBUMIN 3.5 g/dL (3.5-5.0); BILIRUBIN,TOTAL 0.9 mg/dL (0.2-1.0); CREATININE 1.7 mg/dL (0.5-1.5); TOTAL PROTEIN, SERUM 9.5 g/dL (6.0-8.3)
[2018-07-30 14:11] LABS: APPEARANCE,URINE Clear (CLEAR); BILIRUBIN,URINE Negative (NEGATIVE); COLOR,URINE Yellow (YELLOW); GLUCOSE, URINE (UA) >=1000 mg/dL (NEGATIVE); KETONES,URINE Negative (NEGATIVE); LEUKOCYTE ESTERASE ,URINE Negative (NEGATIVE); NITRATE,URINE Negative (NEGATIVE); OCCULT BLOOD,URINE Nonhemolyzed Trace (NEGATIVE); PROTEIN,URINE Trace (NEGATIVE); UROBILINOGEN,URINE 0.2 mg/dL (0.2-1.0)
[2018-07-30 14:17] LABS: BACTERIA,URINE None Seen /HPF (None Seen); RBC,URINE 0-1 /HPF (0-1); SQUAMOUS EPITHELIAL CELL,UR 0-2 /HPF (0-2); WBC,URINE 0-1 /HPF (0-1)
[2018-07-30 14:19] LABS: AMPHET/METH SCREEN,URINE NEGATIVE (NEGATIVE); BARBITURATE SCREEN, URINE NEGATIVE (NEGATIVE); BENZODIAZEPINES SCREEN,URINE NEGATIVE (NEGATIVE); CANNABINOID SCREEN,URINE NEGATIVE (NEGATIVE); COCAINE SCREEN,URINE NEGATIVE (NEGATIVE); OPIATE SCREEN,URINE NEGATIVE (NEGATIVE); PHENCYCLIDINE SCREEN,URINE NEGATIVE (NEGATIVE)
[2018-07-30] MEDS ORDERED: DiphenhydrAMINE HCL 50 MG/ML VIAL ONE (14:48)
[2018-07-30] MEDS ORDERED: PROCHLORPERAZINE EDISYLATE 10 MG/2 ML VIAL ONE (14:48)
== END 2018-07-30 16:45 | disposition home or self-care (01) ==
LOC: EDH 12:30
DX: K74.60 Unspecified cirrhosis of liver (principal); R11.2 Nausea with vomiting, unspecified; F41.9 Anxiety disorder, unspecified; E11.9 Type 2 diabetes mellitus without complications; K21.9 Gastro-esophageal reflux disease without esophagitis; I10 Essential (primary) hypertension; Z90.5 Acquired absence of kidney; Z90.49 Acquired absence of other specified parts of digestive tract; Z88.8 Allergy status to other drugs, medicaments and biological substances
CPT/HCPCS: 36415; 74018; 80053; 80305; 81001; 82140; 83690; 85025; 96361; 96374; 96375; 99285; J0780; J1200; J2405; J7040

== ENCOUNTER → 2018-10-01 | Outpatient (CLI) | payer OTHER ==
[~2018-10-01] MED LIST changes: -AMLO10TA6 PO; +AMLO10TA7 PO; -LOSA100T20 PO; +LOSA100T58 PO; +REGADENOSON 0.4 MG/5 ML PF SYG IVP SCH
== END | disposition home or self-care (01) ==
LOC: SHCH 07:45
PROVIDERS: ATTEND Internal Medicine Cardiovascular Disease
DX: I25.10 Atherosclerotic heart disease of native coronary artery without angina pectoris (principal)
CPT/HCPCS: 78452; 93017; 96374; A9500 ×2; J2785

== ENCOUNTER 2018-10-07 07:50 | Emergency (ER) | payer OTHER ==
[~2018-10-07 07:50] MED LIST changes: -REGADENOSON 0.4 MG/5 ML PF SYG IVP SCH
[2018-10-07] MEDS ORDERED: ONDANSETRON HCL 4 MG/2 ML VIAL ONE (08:18)
[2018-10-07] MEDS ORDERED: LACTULOSE 20 GM/30 ML UDCUP ONE (08:23)
[2018-10-07 08:40] LABS: BASOPHILS % (AUTO) 0.6 % (0.0-5.0); EOSINOPHILS % (AUTO) 3.1 % (0.0-8.0); HEMATOCRIT 28.4 % (42-54); LYMPHOCYTES % (AUTO) 20.1 % (21.0-51.0); MEAN CORPUSCULAR HEMOGLOBIN 27.4 pg (27.0-33.0); MEAN CORPUSCULAR HGB CONC 32.8 g/dL (32.0-36.0); MEAN CORPUSCULAR VOLUME 83.5 fL (79-99); NEUTROPHILS % (AUTO) 67.2 % (40.0-77.0); PLATELET COUNT (AUTO) 102 K/uL (130-400); RED CELL DISTRIBUTION WIDTH 18.1 % (11.0-15.5); WHITE BLOOD COUNT (AUTO) 5.6 K/uL (4.8-10.8)
[2018-10-07 08:47] LABS: CARBON DIOXIDE 24 mmol/L (21-32); CHLORIDE 99 mmol/L (101-111); CREATININE 1.7 mg/dL (0.5-1.5); GLOMERULAR FILTR. RATE CALC 44 mL/min (>60); GLUCOSE,RANDOM 200 mg/dL (70-105); POTASSIUM 4.3 mmol/L (3.5-5.1); SODIUM SERUM 133 mmol/L (136-145); UREA NITROGEN, BLOOD 18 mg/dL (7-18)
[2018-10-07 08:52] LABS: ALANINE AMINOTRANSFERASE 31 U/L (12-78); ASPARTATE AMINOTRANSFERASE 44 U/L (10-37); BILIRUBIN,DIRECT 0.2 mg/dL (0.0-0.3); BILIRUBIN,TOTAL 0.6 mg/dL (0.2-1.0); LIPASE 209 U/L (114-286); TOTAL PROTEIN, SERUM 8.3 g/dL (6.0-8.3)
[2018-10-07 08:53] LABS: AMMONIA 47 umol/L (11-32)
[2018-10-07 08:54] LABS: ALCOHOL, BLOOD < 3 mg/dL (0-10)
[2018-10-07 08:58] LABS: INR 1.13 (0.85-1.15); PARTIAL THROMBOPLASTIN TIME 27.1 SEC (26.3-35.5); PROTHROMBIN TIME 11.8 SEC (9.6-11.6)
[2018-10-07 10:02] LABS: AMPHET/METH SCREEN,URINE NEGATIVE (NEGATIVE); BARBITURATE SCREEN, URINE NEGATIVE (NEGATIVE); BENZODIAZEPINES SCREEN,URINE NEGATIVE (NEGATIVE); CANNABINOID SCREEN,URINE NEGATIVE (NEGATIVE); COCAINE SCREEN,URINE NEGATIVE (NEGATIVE); OPIATE SCREEN,URINE NEGATIVE (NEGATIVE); PHENCYCLIDINE SCREEN,URINE NEGATIVE (NEGATIVE)
[2018-10-07 10:05] LABS: APPEARANCE,URINE Clear (CLEAR); BILIRUBIN,URINE Negative (NEGATIVE); COLOR,URINE Yellow (YELLOW); GLUCOSE, URINE (UA) Negative (NEGATIVE); KETONES,URINE Negative (NEGATIVE); LEUKOCYTE ESTERASE ,URINE Negative (NEGATIVE); NITRATE,URINE Negative (NEGATIVE); OCCULT BLOOD,URINE Negative (NEGATIVE); PH,URINE 5.5 (5.0-8.0); PROTEIN,URINE Negative (NEGATIVE)
== END 2018-10-07 11:18 | disposition home or self-care (01) ==
LOC: EDH 07:50
DX: K74.60 Unspecified cirrhosis of liver (principal); I10 Essential (primary) hypertension; E78.5 Hyperlipidemia, unspecified; Z90.5 Acquired absence of kidney; Z85.118 Personal history of other malignant neoplasm of bronchus and lung; Z88.6 Allergy status to analgesic agent; Z91.011 Allergy to milk products; Z87.891 Personal history of nicotine dependence; Z98.890 Other specified postprocedural states
CPT/HCPCS: 36415; 71045; 74176; 80048; 80076; 80305; 81003; 82140; 83690; 85025; 85610; 85730; 93005; 96374; 99284; G0480; J2405

== ENCOUNTER → 2018-11-22 | Outpatient (CLI) | payer OTHER | END | disposition home or self-care (01) | LOC: RAH 10:32 | PROVIDERS: ATTEND Internal Medicine Gastroenterology | DX: K30 Functional dyspepsia (principal); R14.0 Abdominal distension (gaseous) | CPT/HCPCS: 78264; A9541 ==

== ENCOUNTER → 2019-09-15 | Outpatient (CLI) | payer OTHER ==
[~2019-09-15] MED LIST changes: -GLIM2TAB3 PO; +GLIM2TAB4 PO
== END | disposition home or self-care (01) ==
LOC: RAH 08:17
PROVIDERS: ATTEND Internal Medicine Gastroenterology
DX: K80.20 Calculus of gallbladder without cholecystitis without obstruction (principal); R16.2 Hepatomegaly with splenomegaly, not elsewhere classified; K70.31 Alcoholic cirrhosis of liver with ascites
CPT/HCPCS: 76700; 93975

== ENCOUNTER 2020-02-03 07:21 | Day surgery (SDC) | payer OTHER ==
[~2020-02-03] VITALS: Ht 177.8 cm; Wt 111.6 kg
[~2020-02-03 07:21] MED LIST changes: -ATOR10TA69 PO; +CALC650T PO; +CARB15DR81 OP; +DOCU240C25 PO; +ERGO500014 PO; +FAMO40TA7 PO; +FERR-63 PO; +GLIM2TAB30 PO; -GLIM2TAB4 PO; +HC530C TP; -LABETALOL PO; +LACT10SO9 PO; +LACT1CAP90 PO; +LIDO1ADH71 TP; +LOSA50TA64 PO; +ONDA8TAB12 PO; -PANT40TA25 PO; -POLY30DR OP; +PROP10TA10 PO; +RIFA500P3 MC; +SIME80TA12 PO; +SODIUM CHLORIDE 0.9% 1000ML 1,000 ML IV ONE; +TAMS-1 PO
[2020-02-03 08:25] VITALS: BP 155/72
[2020-02-03] MEDS ORDERED: PROPOFOL 10 MG/ML 20ML VIAL IV ONE (08:40)
[2020-02-03 08:54] VITALS: BP 116/51
[2020-02-03 08:58] VITALS: BP 113/51
[2020-02-03 09:04] VITALS: BP 108/71
[2020-02-03 09:10] VITALS: BP 135/76
[2020-02-03 09:15] VITALS: BP 129/71
== END 2020-02-03 09:25 | disposition home or self-care (01) ==
LOC: DAH 07:21
PROVIDERS: ATTEND Internal Medicine
DX: I85.00 Esophageal varices without bleeding (principal); K29.70 Gastritis, unspecified, without bleeding; K25.9 Gastric ulcer, unspecified as acute or chronic, without hemorrhage or perforation; E78.5 Hyperlipidemia, unspecified; I12.9 Hypertensive chronic kidney disease with stage 1 through stage 4 chronic kidney disease, or unspecified chronic kidney disease; E11.22 Type 2 diabetes mellitus with diabetic chronic kidney disease; N18.3 Chronic kidney disease, stage 3 (moderate); K70.31 Alcoholic cirrhosis of liver with ascites; E03.9 Hypothyroidism, unspecified; F32.9 Major depressive disorder, single episode, unspecified; F41.9 Anxiety disorder, unspecified; Z85.528 Personal history of other malignant neoplasm of kidney; Z87.19 Personal history of other diseases of the digestive system; Z79.899 Other long term (current) drug therapy; Z79.890 Hormone replacement therapy; Z79.4 Long term (current) use of insulin; Z90.89 Acquired absence of other organs; Z90.49 Acquired absence of other specified parts of digestive tract; Z90.5 Acquired absence of kidney; Z87.891 Personal history of nicotine dependence; Z88.8 Allergy status to other drugs, medicaments and biological substances
CPT/HCPCS: 36415; 43239; 80048; 82948 ×2; 93005; A4215; A4221; A4222; A4223; A4606; A4620; A4663; J2704; J7030

== ENCOUNTER 2020-05-07 12:18 | Emergency (ER) | payer OTHER ==
[~2020-05-07 12:18] MED LIST changes: -FAMO40TA7 PO; -SODIUM CHLORIDE 0.9% 1000ML 1,000 ML IV ONE
[2020-05-07] MEDS ORDERED: CEFTRIAXONE SODIUM 2 GM VIAL ONE (13:18)
[2020-05-07] MEDS ORDERED: LACTULOSE 20 GM/30 ML UDCUP ONE (14:38)
[2020-05-07] MEDS ORDERED: LORAZEPAM 2 MG/ML 1 ML VIAL ONE (14:54)
== END 2020-05-07 18:38 | disposition home or self-care (01) ==
LOC: EDH 12:18
DX: R60.0 Localized edema (principal); R60.9 Edema, unspecified; E72.20 Disorder of urea cycle metabolism, unspecified; E78.5 Hyperlipidemia, unspecified; I10 Essential (primary) hypertension; Z87.891 Personal history of nicotine dependence; Z88.6 Allergy status to analgesic agent; Z91.011 Allergy to milk products; Z79.84 Long term (current) use of oral hypoglycemic drugs; Z88.8 Allergy status to other drugs, medicaments and biological substances
CPT/HCPCS: 36415; 71045; 74176; 80053; 80076; 81003; 82140; 82550; 83690; 83880; 84484; 85025; 85610; 85730; 87040 ×2; 93005; 96374; 96375; 99285; J0696; J2060

== ENCOUNTER → 2020-10-22 | Outpatient (CLI) | payer OTHER ==
[~2020-10-22] MED LIST changes: +AMLO-258 PO; -AMLO10TA7 PO; +ESCI-8 PO; -ESCI10TA54 PO
== END | disposition home or self-care (01) ==
LOC: RAH 15:46
PROVIDERS: ATTEND Internal Medicine Gastroenterology
DX: R06.02 Shortness of breath (principal)
CPT/HCPCS: 71046